=== PATIENT | female | born 1955 | race Caucasian/White ===

== ENCOUNTER 2019-12-20 12:36 | Outpatient (CLI) | payer BC, SELFPAY ==
--- NOTE | ~2019-12-20 | US_ITS ---
EXAMINATION: US venous doppler [facility] DATE: 12/20/2019 13:16 INDICATION: Left calf pain. TECHNIQUE: Grayscale ultrasound images without and with compression and Doppler ultrasound images of the left lower extremity veins were obtained. COMPARISON: Ultrasound 12/03/2013 FINDINGS: The visualized portions of left common femoral vein, profunda (deep) femoral vein, femoral vein, popl iteal vein, peroneal veins, posterior tibial veins, and greater saphenous vein outflow are patent. Zarate bcutaneous edema is noted. IMPRESSION: 1. No deep venous thrombosis. Reviewed, dictated and finalized at location A.
== END 2019-12-20 12:37 | disposition home or self-care (01) ==
PROVIDERS: PCP Nurse Practitioner Adult Health; Visit Provider Nurse Practitioner Family
DX: M79.662 Pain in left lower leg (principal)
CPT/HCPCS: 93971

== ENCOUNTER 2021-02-16 09:55 | Outpatient (CLI) | payer BC, SELFPAY ==
--- NOTE | ~2021-02-16 | US_ITS ---
EXAMINATION: US thyroid DATE: 02/16/2021 10:32 INDICATION: Nontoxic multinodular goiter. TECHNIQUE: Multiple ultrasound images of the thyroid were obtained. COMPARISON: Ultrasound 03/15/2019, 09/03/18, 09/24/18 FINDINGS: The right thyroid lobe measures 4.2 x 3.3 x 2.1 cm. The left thyroid lobe measures 4.7 x 2.2 x 0.9 c m. In the right thyroid lobe, there is a 13 mm solid, hypoechoic, iidhp-yuwm-rtcw nodule with smooth margin without echogenic foci (TI-RADS TR4), stable from 09/03/18. In the right thyroid lobe, there is an 18 mm predominantly solid, isoechoic, pivth-xrpm-svwg nodule with lobulated margin with punctat e echogenic foci (TR5), stable from 09/24/18 when biopsy was benign. In the right thyroid lobe, there is a 2.1 cm solid, isoechoic, rqqvq-qhih-iwcv nodule with ill-defined margin without echogenic foci (TR4), stable from 09/24/18 when biopsy was benign. In the right thyroid lobe, there is a 13 mm solid , hypoechoic, uqtco-wart-sygl nodule with smooth margin without echogenic foci (TR4), stable from . There are smaller nodules in left thyroid lobe. IMPRESSION: 1. Stable multinodular goiter, likely not clinically significant. Reviewed, dictated and finalized at location B.
== END 2021-02-16 09:56 | disposition home or self-care (01) ==
PROVIDERS: PCP Nurse Practitioner Adult Health; Visit Provider Nurse Practitioner Adult Health
DX: E04.2 Nontoxic multinodular goiter (principal)
CPT/HCPCS: 76536

== ENCOUNTER 2022-06-30 10:47 | Outpatient (CLI) | payer OTHER, SELFPAY ==
--- NOTE | ~2022-06-30 | US_ITS ---
EXAMINATION: US thyroid DATE: 06/30/2022 11:45 INDICATION: Nontoxic single thyroid nodule. TECHNIQUE: Multiple ultrasound images of the thyroid were obtained. COMPARISON: Ultrasound 02/16/2021, 09/03/2018 FINDINGS: The right thyroid lobe measures 5.7 x 1.4 x 3.3 cm. The left thyroid lobe measures 4.7 x 0.9 x 2.1 c m. In the right thyroid lobe, there is a 2.0 cm solid, hypoechoic, wider than tall nodule with maryam h margin without echogenic foci (TI-RADS TR4). In the right thyroid lobe, there is a 1.5 cm solid, hy poechoic, wider than tall nodule with smooth margin without echogenic foci (TR4). In the right thyroi d lobe, there is a 2.1 cm solid, hypoechoic, wider than tall nodule with ill-defined margin without e chogenic foci (TR4). In the right thyroid lobe, there is a 1.3 cm predominantly solid, hypoechoic, wi pratima than tall nodule with ill-defined margin without echogenic foci (TR4). In the right thyroid lobe, there is a 1.7 cm solid, hypoechoic, wider than tall nodule with smooth margin without echogenic foc i (TR4). In the left thyroid lobe, there is a 1.1 cm solid, hypoechoic, wider than tall nodule with i ll-defined margin without echogenic foci (TR4). In the left thyroid lobe, there is a 1.0 cm solid, hy poechoic, wider than tall nodule with smooth margin without echogenic foci (TR4). IMPRESSION: 1. Multinodular goiter, stable from 09/03/2018. Two nodules biopsied on 09/24/2018 were benign. Reviewed, dictated and finalized at location A. IMPRESSION: 1. Multinodular goiter, stable from 09/03/2018. Two nodules biopsied on 018 were benign.
== END 2022-06-30 10:48 | disposition home or self-care (01) ==
PROVIDERS: PCP Nurse Practitioner Family; Visit Provider Nurse Practitioner Family
DX: E04.2 Nontoxic multinodular goiter (principal)
CPT/HCPCS: 76536

== ENCOUNTER 2022-09-02 09:34 | Outpatient (CLI) | payer OTHER, SELFPAY ==
--- NOTE | ~2022-09-02 | MM_ITS ---
EXAMINATION: MM screening matilde BI w ree HISTORY: Screening mammogram TECHNIQUE: Craniocaudal and mediolateral oblique 3-D tomosynthesis images were obtained and synthetic 2-D images were generated. CAD analysis was submitted and interpreted. COMPARISON: No prior mammogram is available for comparison at this institution. BREAST PARENCHYMAL COMPOSITION: There are scattered areas of fibroglandular density. FINDINGS: Scattered benign-appearing calcifications are present. No suspicious mass, calcification, o r architectural distortion are identified in either breast to suggest malignancy. IMPRESSION: 1. No mammographic evidence of malignancy. 2. Recommend routine screening mammography in one year. BI-RADS Category 2: Benign finding(s). Reviewed, dictated and finalized at location A. OUT SUPERVISOR
== END 2022-09-02 09:35 | disposition home or self-care (01) ==
PROVIDERS: PCP Nurse Practitioner Family; Visit Provider Nurse Practitioner Family
DX: Z12.31 Encounter for screening mammogram for malignant neoplasm of breast (principal)
CPT/HCPCS: 77063; 77067

== ENCOUNTER 2022-12-13 08:39 | Outpatient (CLI) | payer OTHER, SELFPAY ==
--- NOTE | ~2022-12-13 | XR_ITS ---
EXAMINATION: XR barium swallow modified DATE: 12/13/2022 09:13 INDICATION: Dysphagia. Cough while swallowing solids. TECHNIQUE: The patient was given barium-containing material of multiple consistencies to swallow by t trudy speech pathologist while I performed fluoroscopy. Fluoroscopy exposure time was 1.1 minutes. The n umber of fluoroscopy images saved to the PACS was 3. Dose-area product was 2.856 Gy-cm^2. FINDINGS: The swallow is normal. The esophagus is severely enlarged and gas-filled. IMPRESSION: 1. Severely enlarged and gas-filled esophagus, most likely secondary to achalasia. Endoscopy is recom mended to exclude malignancy. 2. Please refer to the speech therapy report for recommendations. Reviewed, dictated and finalized at location A. P JIG ASSEMBLER IMPRESSION: 1. Severely enlarged and gas-filled esophagus, most likely secondary to achalas ia. Endoscopy is recommended to exclude malignancy. 2. Please refer to the speech therapy report for recommendations.
--- NOTE | 2022-12-13 14:15 | REHSTMBS ---
Assessment and note entered by Nicolle Hassan, UNDERCOAT SPRAYER Modified Barium Swallow Evaluation Feeding Type Recommended Oral Food Consistency Soft and Bite Size, Level Liquid Consistency Thin (0) ST Clinical Summary MODIFIED BARIUM SWALLOW STUDY This patient was seen for a Modified Barium Swallow at the request of her physician. She reports she has a long-standing history of difficulty swallowing however now she feels it is getting worse. She stated that when she eats, her throat becomes congested and she begins to cough and eventually coughs up phlegm. She denies sinus or allergy as a cause for drainage or phlegm in the throat but does report a history of gastroesophageal reflux with medication but she feels the medication has not contributed to improvement. Patient does report a current issue with her thyroid, including thyroid nodules. She indicated she is to undergo an EGD and colonoscopy procedure next week. Today the patient was viewed in the lateral position to the level of C5/C6. When first viewed, patient exhibited an unusual looking pharynx. She was given sips of thin liquid and no evidence of penetration/aspiration was noted however radiologist placed patient in the AP position and had her consume more liquid. Unusual structure, shape and location was observed by this therapist. See Radiology Report for details. Evaluation continued in the lateral position and patient continued to exhibit adequate manipulation, mastication, and swallows for each subsequent amount and consistency. Patient is referred back to her physician for further assessment of her complaints. Thank you for this referral.
== END 2022-12-13 08:40 | disposition home or self-care (01) ==
PROVIDERS: PCP Nurse Practitioner Family; Visit Provider Nurse Practitioner Family
DX: R13.10 Dysphagia, unspecified (principal)
CPT/HCPCS: 92611

== ENCOUNTER 2022-12-22 01:02 | Day surgery (SDC) | payer OTHER, SELFPAY ==
[2022-12-12 14:55] VITALS: BMI 40.5
[2022-12-22 08:50] VITALS: BP 126/73; PULSE 85; RESP 20; TEMP 36.5; O2SAT 97; BMI 39.3
[2022-12-22] MEDS: LACTATED RINGERS 1,000 ML 150 ML IV CONT (09:08)
--- NOTE | 2022-12-22 09:20 | WPDHPUPDATE1 ---
History and Physical Update Update Date/Time: 12/22/22 09:20 History and Physical has been reviewed, including an updated exam of the patient. There are NO changes in the patient's condition. Risks, benefits, and alternatives have been discussed and questions answered. Patient agrees to proceed with procedure.
--- NOTE | 2022-12-22 09:31 | WPDANESEPPF ---
Anes - Initial Pre Proc Eval Procedure: Operation Date: 12/22/22 10:00 Proposed Procedures p Esophagogastroduodenoscopy & Screening Colonoscopy - Fran Pollard MD Date/Time: 12/22/22 09:31 Surgeon: Fran Pollard MD Pre Op Diagnosis: Neoplasm screening, Fam hx colon ca,dysphagia Patient Data Age: 67 Gender: F Height: 1.6 m Weight: 100.8 kg Last Vital Signs Temp 97.7 F 12/22/22 08:50 Pulse 85 12/22/22 08:50 Resp 20 12/22/22 08:50 BP 126/73 12/22/22 08:50 Pulse Ox 97 12/22/22 08:50 O2 Del Method Room Air 12/22/22 08:50 Allergies Allergy/AdvReac Type Severity Reaction Status Date / Time cephalexin AdvReac Mild Rash Verified 12/22/22 08:48 Home Medications Medication Instructions Recorded Confirmed Type calcium carbonate 600 mg-vitamin 1 tablet PO DAILY 11/05/21 12/12/22 History D3 20 mcg (800 unit) tablet pqyuiodnger-pyhrccgzb-bhm C-Mn 500 1 cap PO DAILY 11/05/21 12/12/22 History mg-400 mg capsule pkmlqdvz-lwg-anhkb ac 400 1 tablet PO DAILY 11/05/21 12/12/22 History mcg-calcium carb 500 mg-vit K1 20 mcg tablet (Women's 50 Plus Multivitamin) timolol 0.5 %-dorzolamide 2 1 drp ophthalmic (eye) DAILY 11/05/21 12/12/22 History %-latanprost 0.005 % (PF) eye drops ezetimibe 10 mg-rosuvastatin 20 mg 1 tablet PO DAILY #90 tabs 08/23/22 12/12/22 Rx tablet furosemide 20 mg tablet 20 mg PO QAM #90 tabs 08/23/22 12/12/22 Rx lisinopril 40 mg tablet 40 mg PO DAILY #90 tabs 08/23/22 12/12/22 Rx fluticasone propionate 50 1 spray intranasal BID #16 grams 11/29/22 12/12/22 Rx mcg/actuation nasal spray,suspension (Flonase Allergy Relief) Patient hx anesthesia problems: none Family hx anesthesia problems: none Results Review: All pre-operative results and documents have been reviewed as part of the pre-operative evaluation. PMFSH Past Medical History Medical History (Updated 12/06/22 @ 10:30 by JONES Landeros) Arthritis Bilateral edema of lower extremity BMI 40.0-44.9, adult Breast cancer screening 09/05/22 mammogram negative Dysphagia Encounter to establish care Family history of colon cancer GERD (gastroesophageal reflux disease) Glaucoma History of colon polyps Hoarseness HTN (hypertension) Hyperlipidemia Lump of skin of back Phlegm in throat Thyroid nodule Wellness examination Surgical History Surgical History Obstructed fallopian tubes Family History Family History Mother Carcinoma of colon Cervical cancer Hypertension Social History Social History Smoking status: Never smoker Additional smoking assessment comments: parents smoked Alcohol intake: current Alcohol use details: rare occasions Substance use: never Substance use type: does not use Lack of Transportation: No Lack of Food: Never True Current Housing: I Have Housing Concerned About Future Housing: No Difficulty Paying Gas/Electric Bills: No Difficulty Paying for Meds: No Currently Unemployed: No Education: Bachelor's Degree Difficulty w/ Childcare or Family Care: No Living arrangements: with family Spiritual care concerns: No Anes - Eval Final PreProcedure Day of Procedure 12/22/22 09:31 Patient weight: morbidly obese Heart: regular rate and rhythm Lungs: clear to auscultation Airway: Mallampati scale class III Neurological: alert and oriented Last oral intake: >/= 8 hours ASA classification: III Emergent: no Anesthetic plan: proceed Anesthesia type and monitoring: general GIVS and standard monitoring Results Review: All pre-operative results and documents have been reviewed as part of the pre-operative evaluation. Informed Consent: The patient's anesthetic plan and its attendant risks and benefits were discussed with the patien
--- NOTE | 2022-12-22 10:25 | SUR.OPER ---
EGD end: 1019 COLONOSCOPY START: 102
[2022-12-22 10:39] VITALS: BP 111/58; PULSE 85; RESP 24; O2SAT 100
[2022-12-22 10:49] VITALS: BP 126/70; PULSE 81; RESP 17; O2SAT 100
[2022-12-22 10:59] VITALS: BP 134/57; PULSE 77; RESP 22; O2SAT 100
== END 2022-12-22 11:13 | disposition home or self-care (01) ==
PROVIDERS: PCP Nurse Practitioner Family; Visit Provider Internal Medicine Gastroenterology
PROC: 0DJ08ZZ Inspection of Upper Intestinal Tract, Via Natural or Artificial Opening Endoscopic (ICD-10-PCS; CPT 43235; principal; 2022-12-22 10:00)
DX: Z12.11 Encounter for screening for malignant neoplasm of colon (principal); D12.2 Benign neoplasm of ascending colon; K64.8 Other hemorrhoids; K57.30 Diverticulosis of large intestine without perforation or abscess without bleeding; K29.80 Duodenitis without bleeding; R13.10 Dysphagia, unspecified; Z80.0 Family history of malignant neoplasm of digestive organs; K21.9 Gastro-esophageal reflux disease without esophagitis; H40.9 Unspecified glaucoma; I10 Essential (primary) hypertension; E78.5 Hyperlipidemia, unspecified; E66.01 Morbid (severe) obesity due to excess calories; Z68.39 Body mass index [BMI] 39.0-39.9, adult
CPT/HCPCS: 45385; 43239; 88305; J2704; J7120

== ENCOUNTER 2023-04-26 12:44 | Inpatient (IN) | payer OTHER, SELFPAY ==
[2023-04-26] VITALS (17 sets, daily range): BP systolic 113–152; BP diastolic 34–81; PULSE 74–101; RESP 14–20; TEMP 36.2–36.6; O2SAT 88–100; BMI 33.5
--- NOTE | ~2023-04-26 | US_ITS ---
EXAMINATION: US renal BI DATE: 04/27/2023 14:01 INDICATION: derrell TECHNIQUE: Multiple grayscale and Doppler ultrasound images of the kidneys were obtained. COMPARISON: None. FINDINGS: Evaluation of the kidneys limited by body habitus. The right kidney measures 10.4 x 4.9 x 5.5 cm. The left kidney measures 11.5 x 5.7 x 4.7 cm. The kidneys demonstrate normal parenchymal echogenicity. T here is no hydronephrosis. The bladder is poorly visualized due to incomplete distention. IMPRESSION: Unremarkable renal sonogram findings, noting that this examination was mildly limited as described ab ove. Reviewed, dictated and finalized at location K. IMPRESSION: Unremarkable renal sonogram findings, noting that this examination was mildly l imited as described above.
--- NOTE | 2023-04-26 14:17 | ED.RECABL ---
HPI - Recheck/Abnormal Lab/Rx General Chief Complaint: Recheck/Abnormal Lab/Rx Stated Complaint: very dehydrated and kidney function is very low Time Seen by Provider: 04/26/23 14:03 History of Present Illness HPI narrative: Patient is a 67-year-old female presenting with concerns for dehydration. Patient states that she is scheduled to have achalasia surgery in approximately 12 days at [facility]. She had outpatient blood work today and was informed that she was dehydrated and her kidney function was low so she needed to come in for evaluation. States that she feels generally fatigued and thirsty. States that she has had decreased urinary frequency lately. States that she has had minimal p.o. intake due to her achalasia. States that she is still keeping water down. Denies headache, fevers or chills, chest pain, shortness of breath, cough, abdominal pain, dysuria, diarrhea, leg swelling. Related Data Home Medications Medication Instructions Recorded Confirmed omeprazole 1 cap PO DAILY PRN Indigestion 04/24/23 04/26/23 Allergies Allergy/AdvReac Type Severity Reaction Status Date / Time cephalexin AdvReac Unknown Unknown Verified 04/26/23 12:45 Review of Systems Review of Systems: All systems reviewed & are unremarkable except as noted in HPI and below PMFSH Past Medical History Medical History (Updated 05/04/23 @ 18:10 by Verito Jacobo MD) Achalasia of digestive tract Arthritis Bilateral edema of lower extremity BMI 40.0-44.9, adult Breast cancer screening 09/05/22 mammogram negative Dysphagia Family history of colon cancer GERD (gastroesophageal reflux disease) Glaucoma History of colon polyps Hoarseness HTN (hypertension) Hyperlipidemia Lump of skin of back Phlegm in throat Thyroid nodule Surgical History Surgical History (Updated 04/27/23 @ 00:06 by Sindy Chen NP) H/O colonoscopy with polypectomy H/O post-sterilization tuboplasty obstruction of fallopian tube Family History Family History Mother Carcinoma of colon Cervical cancer Hypertension Sibling Colon polyp Other Hypertension aunt Social History Social History (Updated 04/27/23 @ 00:08 by Sindy Chen NP) Social History: 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 She lives with her and her son. Her is a durable power banking attorney for healthcare. The patient is lifelong nonsmoker. Code status full code Smoking status: Never smoker Additional smoking assessment comments: parents smoked Alcohol intake: never Substance use: never Substance use type: does not use Lack of Transportation: No Lack of Food: Never True Current Housing: I Have Housing Concerned About Future Housing: No Difficulty Paying Gas/Electric Bills: No Difficulty Paying for Meds: No Currently Unemployed: No Education: Bachelor's Degree Difficulty w/ Childcare or Family Care: No Living arrangements: with family Occupation/Education: retired Gender identity (if verbalized by the patient): Female Sexual Orientation (if Verbalized by the Patient): Straight or Heterosexual Spiritual care concerns: No Exam Narrative: GENERAL: Well-appearing, well-nourished, and in no acute distress. HEAD: Normocephalic, atraumatic. EYES: PERRLA and EOMI. ENT: Nares clear, no rhinorrhea or epistaxis. Mucous membranes moist. NECK: Supple. CHEST: Clear to auscultation. No respiratory distress. HEART: Regular rate and rhythm. Normal peripheral pulses. ABDOMEN: Soft, nontender, nondistended EXTREMITIES: Normal range of motion. No edema. SKIN: Warm, dry, no rash. NEURO: No focal deficits. Alert and oriented x3. PSYCH: Normal mood and affect. Course Vital Signs Vital signs: Vital Signs Temperature 97.2 F L 04/26/23 12:48 Pulse Rate 74 04/26/23 12:48 Respiratory Rate 20 04/26/23 12:48 Blood P
[2023-04-26] MEDS: SODIUM CHLORIDE 0.9% IV 1,000 ML 999 ML IV CONT ×2 (14:41→15:51)
[2023-04-26 14:47] LABS: Basophils Percent Auto 0.3 % (0.2-1.2); Eosinophils Absolute Auto 0.2 K/mm3 (0-0.3); Eosinophils Percent Auto 1.4 % (0-4.4); Hematocrit 47.3 % (37.0-47.0); Hemoglobin 15.1 g/dL (12.0-15.0); Immature Granulocyte Absolute 0.03 K/mm3 (0.00-0.031); Immature Granulocyte Percent A 0.3 % (0-0.5); Lymphocytes Percent Auto 12.2 % (18.3-44.2); Mean Corpuscular HGB Conc 31.9 g/dl (32-36); Mean Corpuscular Hemoglobin 28.1 pg (26-34); Mean Corpuscular Volume 88.1 fl (80-100); Mean Platelet Volume 12.3 fl (7.4-10.4); Monocytes Absolute Auto 0.6 K/mm3 (0.1-0.6); Monocytes Percent Auto 5.3 % (2.6-8.5); Neutrophils Absolute Auto 8.6 K/mm3 (1.3-6.7); Neutrophils Percent Auto 80.5 % (45.5-73.1); Platelet Count Result 221 k/mm3 (150-375); Red Blood Count 5.37 M/mm3 (4.2-5.4); Red Cell Distribution Width 13.1 % (11.5-14.5); White Blood Count 10.6 K/mm3 (4.5-10.0)
[2023-04-26 15:00] LABS: Alanine Aminotransferase 19 U/L (6-35); Alkaline Phosphatase 91 U/L (38-126); Anion Gap 15 mmol/L (8-16); Aspartate Amino Transferase 22 U/L (14-36); Bilirubin,Total 0.5 mg/dL (0.2-1.3); Blood Urea Nitrogen > 120 mg/dL (7-17); Calcium 10.3 mg/dL (8.4-10.2); Carbon Dioxide 26 mmol/L (22-30); Chloride 107 mmol/L (98-107); Estimated CRCL calculation 18 ml/min; Estimated Glomerular Filt Rate 16; Glucose 119 mg/dL (65-110); Lipase 431 U/L (23-300); Magnesium 2.4 mg/dL (1.6-2.3); Potassium 3.4 mmol/L (3.4-5.0); Sodium 148 mmol/L (137-145)
[2023-04-26 15:09] LABS: Appearance Urine Cloudy (Clear); Bacteria Urine Rare /hpf; Bilirubin Urine Negative (Negative); Blood Urine 2+ (Negative); Color Urine Yellow (Yellow); Glucose Urine UA Negative (Negative); Hyaline Casts Urine Present /lpf; Ketones Urine Trace mg/dL (Negative); Leukocyte Esterase Ur 1+ LEU/UL (Negative); Nitrate Urine Negative (Negative); Non Pathogenic Casts >20; Protein Urine 1+ mg/dL (Negative); RBC Urine 0-2 /hpf (0-2); Specific Grav Ur 1.018 (1.001-1.035); Squamous Epithelial Cell Urine Moderate /hpf (Few); Urobilinogen Urine 0.2 mg/dL (<2.0)
[2023-04-26 15:11] LABS: Add Urine Microscopic? YES
--- NOTE | 2023-04-26 17:38 | ADMGEN ---
This patient, Magaly Butler, was admitted to Medical Room 349-01. Patient/family oriented to hospital policies and general routines including ID bracelet, bed and alarms, visiting hours, pain management, procedures, bathroom and other care routines, personal items, smoking policy, room service/diet, and visiting hours. Information on how to activate the Rapid Response Team has been discussed. Patient/Family are encouraged to report perceived risks to care and to ask questions if they do not understand what they are told or what they should do.
--- NOTE | 2023-04-26 22:00 | P.HP_ITS ---
ALT 19 (6-35) U/L Alkaline Phosphatase 91 (38-126) U/L Albumin 4.0 (3.5-5.1) g/dL Urine 04/26/23 Range/Units 14:36 Urine Color Yellow (Yellow) Urine Appearance Cloudy H (Clear) Urine pH 5.0 (5.0-9.0) Ur Specific [place] 1.018 (1.001-1.035) Urine Protein 1+ H (Negative) mg/dL Urine Glucose (UA) Negative (Negative) mg/dL Assessment and Plan Assessment and plan (1) ORIANA (acute kidney injury): Code(s): N17.9 - Acute kidney failure, unspecified Status: Acute Assessment and Plan: The patient has had poor oral intake. The patient has a history of achalasia and is approximately 12 days away from surgery. When I assessed the patient she was drinking water without difficulty. Continue with IV fluids as her creatinine is 2.9. Her GFR is 16. Calcium 10.3. Renal ultrasound has been ordered for tomorrow. If patient does not have any improvement or has an abnormal ultrasound may consider consulting Nephrology. (2) Achalasia of digestive tract: Code(s): K22.0 - Achalasia of cardia Status: Acute Assessment and Plan: The patient is 12 days away from surgery of [facility]. (3) Hyperlipidemia: Code(s): E78.5 - Hyperlipidemia, unspecified Status: Acute Assessment and Plan: Continue with current treatment. (4) HTN (hypertension): Code(s): I10 - Essential (primary) hypertension Status: Acute Assessment and Plan: P.r.n. hydralazine Quality VTE Prophylaxis VTE prophylaxis: mechanical ordered H&P: HPI History of Present Illness Date/Time: 04/26/23 22:00 Chief Complaint: Abnormal lab Narrative: This is a 67-year-old female patient who has a history of achalasia and the patient is approximately 10 days away from having surgery at [facility]. The patient had her pre-surgical labs drawn and was told there was some concern for dehydration. The patient had blood work today and was informed that she was dehydrated that her kidney functions were poor and that she needed to come to the emergency room for evaluation. The patient is fatigued and has difficulty swallowing at times. Typically she can keep water down but has had poor oral intake. She has no fever chills. No nausea vomiting or diarrhea. No difficulty urinating. Her white count is 10.6. H&H is 15.1 and 47.3. Her sodium was 148. P when is 120 creatinine is 2.9. GFR 16. Magnesium 2.4. The patient had +leukocyte esterase in her urine and 11-20 wbc's. With moderate amount of squamous epithelia cells. Most likely this is a contaminant. The patient was given 2 L of IV fluids. The patient is drinking water without difficulty at this time. The patient stated she is starting to feel better. Her urine was sent for culture. The patient is being admitted to observation status on the date of service of 04/26/2023 Review of Systems Review of Systems: All systems reviewed & are unremarkable except as noted in HPI and below Constitutional: Constitutional: Reports as per HPI and Reports no additional constitutional complaints Eyes: Eyes: Reports as per HPI and Reports no additional eye complaints ENT: Reports system reviewed and no additional complaints, except as documented and Reports Normal hearing present Cardiovascular: Cardiovascular: Reports no additional cardiovascular complaints Respiratory: Respiratory: Reports no additional respiratory complaints and Repor
--- NOTE | 2023-04-26 22:00 | PM.IMHP ---
H&P: HPI History of Present Illness Date/Time: 04/26/23 22:00 Chief Complaint: Abnormal lab Narrative: This is a 67-year-old female patient who has a history of achalasia and the patient is approximately 10 days away from having surgery at [facility]. The patient had her pre-surgical labs drawn and was told there was some concern for dehydration. The patient had blood work today and was informed that she was dehydrated that her kidney functions were poor and that she needed to come to the emergency room for evaluation. The patient is fatigued and has difficulty swallowing at times. Typically she can keep water down but has had poor oral intake. She has no fever chills. No nausea vomiting or diarrhea. No difficulty urinating. Her white count is 10.6. H&H is 15.1 and 47.3. Her sodium was 148. P when is 120 creatinine is 2.9. GFR 16. Magnesium 2.4. The patient had +leukocyte esterase in her urine and 11-20 wbc's. With moderate amount of squamous epithelia cells. Most likely this is a contaminant. The patient was given 2 L of IV fluids. The patient is drinking water without difficulty at this time. The patient stated she is starting to feel better. Her urine was sent for culture. The patient is being admitted to observation status on the date of service of 04/26/2023 Review of Systems Review of Systems: All systems reviewed & are unremarkable except as noted in HPI and below Constitutional: Constitutional: Reports as per HPI and Reports no additional constitutional complaints Eyes: Eyes: Reports as per HPI and Reports no additional eye complaints ENT: Reports system reviewed and no additional complaints, except as documented and Reports Normal hearing present Cardiovascular: Cardiovascular: Reports no additional cardiovascular complaints Respiratory: Respiratory: Reports no additional respiratory complaints and Reports no additional respiratory complaints Gastrointestinal: Gastrointestinal: Reports as per HPI and Reports no additional gastrointestinal complaints Musculoskeletal: Musculoskeletal: Reports no additional musculoskeletal complaints Integumentary/Breasts: Skin/Breast: Reports system reviewed and no additional complaints, except as docu and Reports as per HPI Neurologic: Reports system reviewed and no additional complaints, except as documented, Reports as per HPI and Reports Normal hearing present Psychiatric: Psychiatric: Reports no additional psychiatric complaints and Reports as per HPI Endocrine: Endocrine: Reports no additional endocrine complaints Hematologic/Lymphatic: Hematologic/Lymphatic: Reports no additional hematologic/lymphatic complaints Allergic/Immunologic: Allergic/Immunologic: Reports no additional allergic/immunologic complaints [facility] Past Medical History Medical History (Updated 04/27/23 @ 00:05 by Sindy Chen NP) Achalasia of digestive tract Arthritis Bilateral edema of lower extremity BMI 40.0-44.9, adult Breast cancer screening 09/05/22 mammogram negative Dysphagia Family history of colon cancer GERD (gastroesophageal reflux disease) Glaucoma History of colon polyps Hoarseness HTN (hypertension) Hyperlipidemia Lump of skin of back Phlegm in throat Thyroid nodule Surgical History Surgical History (Updated 04/27/23 @ 00:06 by Sindy Chen NP) H/O colonoscopy with polypectomy H/O post-sterilization tuboplasty obstruction of fallopian tube Family History Family History Mother Carcinoma of colon Cervical cancer Hypertension Sibling Colon polyp Other Hypertension aunt Social History Social History (Updated 04/27/23 @ 00:08 by Sindy Chen NP) Social History: 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 She lives with her and her son. Her is a durable power attorney lawyer for healthcare. The patient is lifelong nonsmoker. Code
[2023-04-26] MEDS: SODIUM CHLORIDE 0.9% IV 1,000 ML 100 ML IV CONT (22:47)
[2023-04-27 04:39] VITALS: BP 134/61; PULSE 87; RESP 18; TEMP 36.5; O2SAT 100
[2023-04-27 05:54] LABS: Basophils Percent Auto 0.3 % (0.2-1.2); Eosinophils Absolute Auto 0.2 K/mm3 (0-0.3); Eosinophils Percent Auto 3.2 % (0-4.4); Hematocrit 40.7 % (37.0-47.0); Hemoglobin 12.8 g/dL (12.0-15.0); Immature Granulocyte Absolute 0.02 K/mm3 (0.00-0.031); Immature Granulocyte Percent A 0.3 % (0-0.5); Lymphocytes Absolute Auto 1.21 K/mm3 (0.9-3.2); Lymphocytes Percent Auto 15.9 % (18.3-44.2); Mean Corpuscular HGB Conc 31.4 g/dl (32-36); Mean Corpuscular Hemoglobin 27.6 pg (26-34); Mean Corpuscular Volume 87.7 fl (80-100); Mean Platelet Volume 12.2 fl (7.4-10.4); Monocytes Absolute Auto 0.6 K/mm3 (0.1-0.6); Monocytes Percent Auto 7.9 % (2.6-8.5); Neutrophils Absolute Auto 5.5 K/mm3 (1.3-6.7); Neutrophils Percent Auto 72.4 % (45.5-73.1); Platelet Count Result 195 k/mm3 (150-375); Red Blood Count 4.64 M/mm3 (4.2-5.4); Red Cell Distribution Width 13.2 % (11.5-14.5); White Blood Count 7.6 K/mm3 (4.5-10.0)
[2023-04-27 06:03] LABS: Lactic Acid Reflex 0.8 mmol/L (0.7-2.0)
[2023-04-27 06:24] LABS: Alanine Aminotransferase 17 U/L (6-35); Albumin Level 3.2 g/dL (3.5-5.1); Alkaline Phosphatase 86 U/L (38-126); Anion Gap 11 mmol/L (8-16); Aspartate Amino Transferase 16 U/L (14-36); Bilirubin,Total 0.3 mg/dL (0.2-1.3); Blood Urea Nitrogen 108 mg/dL (7-17); Calcium 9.4 mg/dL (8.4-10.2); Carbon Dioxide 21 mmol/L (22-30); Chloride 119 mmol/L (98-107); Estimated CRCL calculation 29 ml/min; Estimated Glomerular Filt Rate 28; Glucose 111 mg/dL (65-110); Potassium 2.8 mmol/L (3.4-5.0); Sodium 151 mmol/L (137-145)
[2023-04-27] MEDS: KCL 20 MEQ/SW 100 ML 100 ML 50 MEQ IVPB (08:08)
[2023-04-27] MEDS: PANTOPRAZOLE SODIUM IV 40 MG VIAL IV PUSH ×2 (08:08→20:06)
[2023-04-27 11:10] VITALS: BMI 33.5
[2023-04-27] MEDS: SODIUM CHLORIDE 0.9% IV 1,000 ML 100 ML IV CONT (12:13)
[2023-04-27 14:00] VITALS: BP 114/63; PULSE 93; RESP 18; TEMP 36.6; O2SAT 100
[2023-04-27 15:50] LABS: Anion Gap 10 mmol/L (8-16); Blood Urea Nitrogen 88 mg/dL (7-17); Calcium 9.6 mg/dL (8.4-10.2); Carbon Dioxide 23 mmol/L (22-30); Chloride 119 mmol/L (98-107); Estimated CRCL calculation 34 ml/min; Estimated Glomerular Filt Rate 35; Glucose 117 mg/dL (65-110); Magnesium 2.1 mg/dL (1.6-2.3); Sodium 152 mmol/L (137-145)
--- NOTE | 2023-04-27 16:47 | WPDPN ---
Progress Note: A&P Assessment and Plan (1) ORIANA (acute kidney injury): Code(s): N17.9 - Acute kidney failure, unspecified Status: Acute Assessment and Plan: The patient has had poor oral intake. The patient has a history of achalasia and is approximately 12 days away from surgery. When I assessed the patient she was drinking water without difficulty. Continue with IV fluids as her creatinine is 2.9. Her GFR is 16. Calcium 10.3. Renal ultrasound has been ordered for tomorrow. If patient does not have any improvement or has an abnormal ultrasound may consider consulting Nephrology. 04/27/2023 interval history: Patient presented with elevated BUN and creatinine as patient has achalasia, and difficulty with p.o. intake upon arrival patient BUN >120 and Scr 2.9 patient being hydrated and today her BUN is 108 and Scr is 1.8, will continue to hydrate the patient with IV fluid and oral intake will continue monitor and further recommendation to follow. (2) Achalasia of digestive tract: Code(s): K22.0 - Achalasia of cardia Status: Acute Assessment and Plan: The patient is 12 days away from surgery of [facility]. (3) Hyperlipidemia: Code(s): E78.5 - Hyperlipidemia, unspecified Status: Acute Assessment and Plan: Continue with current treatment. (4) HTN (hypertension): Code(s): I10 - Essential (primary) hypertension Status: Acute Assessment and Plan: P.r.n. hydralazine Subjective Date/time seen: 04/27/23 16:47 Interval history: Abnormal lab HPI-Narrative: This is a 67-year-old female patient who has a history of achalasia and the patient is approximately 10 days away from having surgery at [facility].? The patient had her pre-surgical labs drawn and was told there was some concern for dehydration.? The patient had blood work today and was informed that she was dehydrated that her kidney functions were poor and that she needed to come to the emergency room for evaluation.? The patient is fatigued and has difficulty swallowing at times.? Typically she can keep water down but has had poor oral intake.? She has no fever chills.? No nausea vomiting or diarrhea.? No difficulty urinating.? Her white count is 10.6.? H&H is 15.1 and 47.3.? Her sodium was 148.? P when is 120 creatinine is 2.9.? GFR 16.? Magnesium 2.4.? The patient had +leukocyte esterase in her urine and 11-20 wbc's.? With moderate amount of squamous epithelia cells.? Most likely this is a contaminant.? The patient was given 2 L of IV fluids.? The patient is drinking water without difficulty at this time.? The patient stated she is starting to feel better.? Her urine was sent for culture. 04/27/2023 interval history: Patient presented with elevated BUN and creatinine as patient has achalasia, and difficulty with p.o. intake upon arrival patient BUN >120 and Scr 2.9 patient being hydrated and today her BUN is 108 and Scr is 1.8, will continue to hydrate the patient with IV fluid and oral intake will continue monitor and further recommendation to follow. Review of Systems Review of Systems: All systems reviewed & are unremarkable except as noted in HPI and below Exam Narrative: Morbidly obese Patient is comfortable, NAD HEENT: eyes are clear and none icteric LUNGS: Normal respiratory effort ABD: Distended Lower extremities: no edema SKIN: nonjaundiced Neuro: grossly intact. Objective Data Vital Signs Vital Signs: Vital Signs - 24 hr 04/26/23 17:42 04/26/23 17:59 04/26/23 19:44 Temperature 97.4 F L 97.9 F Pulse Rate 88 101 H Respiratory Rate 14 20 Blood Pressure 150/81 H 137/67 Pulse Oximetry 88 L 100 Oxygen Delivery Room Air 04/26/23 20:00 04/27/23 04:39 04/27/23 08:00 Temperature 97.7 F Pulse Rate 101 H 87 Respiratory Rate 20 18 Blood Pressure 134/61 Pulse Oximetry 100 100 Oxygen Delivery Room Air Room Air 04/27/23 14:00 Temperature 97.9 F Pulse Rate 9
[2023-04-27 20:00] VITALS: PULSE 91; RESP 16; O2SAT 96
[2023-04-27 20:11] VITALS: BP 135/65; PULSE 91; RESP 16; TEMP 36.5; O2SAT 96
[2023-04-28] MEDS: SODIUM CHLORIDE 0.9% IV 1,000 ML 100 ML IV CONT ×2 (00:03→08:36)
[2023-04-28 07:21] LABS: Hematocrit 40.3 % (37.0-47.0); Hemoglobin 12.5 g/dL (12.0-15.0); Mean Corpuscular Hemoglobin 27.8 pg (26-34); Mean Corpuscular Volume 89.8 fl (80-100); Platelet Count Result 180 k/mm3 (150-375); Red Blood Count 4.49 M/mm3 (4.2-5.4); Red Cell Distribution Width 13.4 % (11.5-14.5); White Blood Count 7.6 K/mm3 (4.5-10.0)
[2023-04-28 07:25] LABS: Anion Gap 11 mmol/L (8-16); Blood Urea Nitrogen 63 mg/dL (7-17); Calcium 9.4 mg/dL (8.4-10.2); Carbon Dioxide 22 mmol/L (22-30); Chloride 124 mmol/L (98-107); Estimated CRCL calculation 42 ml/min; Estimated Glomerular Filt Rate 45; Glucose 91 mg/dL (65-110); Sodium 157 mmol/L (137-145)
[2023-04-28] MEDS: PANTOPRAZOLE SODIUM IV 40 MG VIAL IV PUSH ×2 (08:36→20:12)
--- NOTE | 2023-04-28 11:15 | PCNFU ---
Nutrition Follow-Up Complete: Moderate Malnutrition related to inadequate oral intake in the setting of acute disease as evidenced by < 75% of EER for > 7 days and significant weight loss of 20%(50 ibs) in the past 3 months. goal: Adequate Intake of at least 75% of meals/supplements Patient is not progressing towards goal. we will continue current goal. Pt current nutrition is Full liquids with ensure compact BId. Nutrition recommendation: Clinimix E at 40 ml/hr with 250 ml of 20% Lipid Emulsion. Last recorded weight is 86 kg. Bowel Motility: +Bm reported 04/26 Labs Reviewed:Cr 1.2,GFR 45, BUN 63, K 3.0,Na 157 Meds Noted:Protonix Skin: WNL Additional Notes: Patient remains on full liquids with diet supplements. Minimal intake reported. She is tolerating hot tea and hot cereal. Unable to keep any other foods down. Discussions with hospitalist regarding po intake and weight loss of 50 ibs in the past 3 months. Recommending: PICC placement and Clinimix E at 40 ml/hr with 250 ml of 20% Lipid Emulsion. TPN providing additional 1182 kcals/48 gms protein. Agree with diet orders. RD will monitor weight, labs, skin, oral intake, TPN every Monday and Monday.
[2023-04-28 11:51] LABS: Glucose Point of Care 89 mg/dl (65-105)
[2023-04-28] MEDS: LIDOCAINE HCL 1% PF INJ 5 ML VIAL INFILTRATE (12:00)
[2023-04-28 12:39] LABS: Transferrin 111 mg/dL (206-381)
[2023-04-28] MEDS: FAT EMULSIONS IV 20% 250 ML 20.83 ML IVPB (13:44)
[2023-04-28] MEDS: AMINO ACIDS 5%/D15W/E-LYTES/CA 2,000 ML with MULTIVITAMINS-12 INJ VIAL 1 2.5 ML, MULTIV... 40 ML IV CONT (13:44)
[2023-04-28 13:45] LABS: Partial Thromboplastin Time 26.1 SECONDS (22.3-36.8)
[2023-04-28] MEDS: KCL 20 MEQ/SW 100 ML 100 ML 50 MEQ IVPB (13:53)
[2023-04-28] MEDS: DEXTROSE 5%/0.45% SOD CHL 1,000 ML 75 ML IV CONT (13:53)
[2023-04-28] MEDS: CENTRAL LINE FLUSH 10 ML IV PUSH ×2 (13:57→20:12)
[2023-04-28 14:00] VITALS: BP 135/58; PULSE 95; RESP 16; TEMP 36; O2SAT 94
--- NOTE | 2023-04-28 16:21 | WPDPN ---
Progress Note: A&P Assessment and Plan (1) ORIANA (acute kidney injury): Code(s): N17.9 - Acute kidney failure, unspecified Status: Acute Assessment and Plan: The patient has had poor oral intake. The patient has a history of achalasia and is approximately 12 days away from surgery. When I assessed the patient she was drinking water without difficulty. Continue with IV fluids as her creatinine is 2.9. Her GFR is 16. Calcium 10.3. Renal ultrasound has been ordered for tomorrow. If patient does not have any improvement or has an abnormal ultrasound may consider consulting Nephrology. 04/28/2023 interval history: Patient presented with elevated BUN and creatinine as patient has achalasia, and difficulty with p.o. intake upon arrival patient BUN >120 and Scr 2.9 patient being hydrated and today her BUN is 63 and Scr is 1.2, however her sodium is trending up to 157 and discuss with diatician, patient is unable to PO and has vomiting, recommended parenteral nutrition, will start patient on TPN will continue to hydrate the patient and oral intake will continue monitor and further recommendation to follow. (2) Achalasia of digestive tract: Code(s): K22.0 - Achalasia of cardia Status: Acute Assessment and Plan: The patient is 12 days away from surgery of [facility]. (3) Hyperlipidemia: Code(s): E78.5 - Hyperlipidemia, unspecified Status: Acute Assessment and Plan: Continue with current treatment. (4) HTN (hypertension): Code(s): I10 - Essential (primary) hypertension Status: Acute Assessment and Plan: P.r.n. hydralazine Subjective Date/time seen: 04/28/23 16:21 Interval history: Abnormal lab HPI-Narrative: This is a 67-year-old female patient who has a history of achalasia and the patient is approximately 10 days away from having surgery at [facility].? The patient had her pre-surgical labs drawn and was told there was some concern for dehydration.? The patient had blood work today and was informed that she was dehydrated that her kidney functions were poor and that she needed to come to the emergency room for evaluation.? The patient is fatigued and has difficulty swallowing at times.? Typically she can keep water down but has had poor oral intake.? She has no fever chills.? No nausea vomiting or diarrhea.? No difficulty urinating.? Her white count is 10.6.? H&H is 15.1 and 47.3.? Her sodium was 148.? P when is 120 creatinine is 2.9.? GFR 16.? Magnesium 2.4.? The patient had +leukocyte esterase in her urine and 11-20 wbc's.? With moderate amount of squamous epithelia cells.? Most likely this is a contaminant.? The patient was given 2 L of IV fluids.? The patient is drinking water without difficulty at this time.? The patient stated she is starting to feel better.? Her urine was sent for culture. 04/28/2023 interval history: Patient presented with elevated BUN and creatinine as patient has achalasia, and difficulty with p.o. intake upon arrival patient BUN >120 and Scr 2.9 patient being hydrated and today her BUN is 63 and Scr is 1.2, however her sodium is trending up to 157 and discuss with diatician, patient is unable to PO and has vomiting, recommended parenteral nutrition, will start patient on TPN will continue to hydrate the patient and oral intake will continue monitor and further recommendation to follow. Review of Systems Review of Systems: All systems reviewed & are unremarkable except as noted in HPI and below Exam Narrative: Morbidly obese Patient is comfortable, NAD HEENT: eyes are clear and none icteric LUNGS: Normal respiratory effort ABD: Distended Lower extremities: no edema SKIN: nonjaundiced Neuro: grossly intact. Objective Data Vital Signs Vital Signs: Vital Signs - 24 hr 04/27/23 20:11 04/27/23 20:00 04/28/23 08:00 Temperature 97.7 F Pulse Rate 91 91 Respiratory Rate 16 16 Blood Pressure 135/65 Pulse Oximetry 9
[2023-04-28 17:09] LABS: Glucose Point of Care 152 mg/dl (65-105)
[2023-04-28 20:00] VITALS: PULSE 95; RESP 16; O2SAT 94
[2023-04-28 20:51] VITALS: BP 142/50; PULSE 74; RESP 22; TEMP 36.6; O2SAT 100
[2023-04-29 00:06] LABS: Glucose Point of Care 155 mg/dl (65-105)
[2023-04-29] MEDS: DEXTROSE 5%/0.45% SOD CHL 1,000 ML 75 ML IV CONT (02:36)
[2023-04-29 05:34] LABS: Glucose Point of Care 153 mg/dl (65-105)
[2023-04-29] MEDS: CENTRAL LINE FLUSH 10 ML IV PUSH ×3 (05:44→20:56)
[2023-04-29 05:58] LABS: Hematocrit 36.2 % (37.0-47.0); Hemoglobin 11.5 g/dL (12.0-15.0); Mean Corpuscular HGB Conc 31.8 g/dl (32-36); Mean Corpuscular Hemoglobin 28.3 pg (26-34); Mean Corpuscular Volume 89.2 fl (80-100); Mean Platelet Volume 11.1 fl (7.4-10.4); Platelet Count Result 152 k/mm3 (150-375); Red Blood Count 4.06 M/mm3 (4.2-5.4); Red Cell Distribution Width 13.5 % (11.5-14.5); White Blood Count 8.2 K/mm3 (4.5-10.0)
[2023-04-29 06:00] VITALS: BP 98/58; PULSE 66; RESP 20; TEMP 36.8; O2SAT 97
[2023-04-29 06:08] LABS: Anion Gap 4 mmol/L (8-16); Blood Urea Nitrogen 39 mg/dL (7-17); Calcium 9.1 mg/dL (8.4-10.2); Carbon Dioxide 27 mmol/L (22-30); Chloride 123 mmol/L (98-107); Estimated CRCL calculation 50 ml/min; Estimated Glomerular Filt Rate 55; Glucose 159 mg/dL (65-110); Magnesium 1.9 mg/dL (1.6-2.3); Phosphorus 1.7 mg/dL (2.5-4.5); Potassium 3.3 mmol/L (3.4-5.0); Sodium 154 mmol/L (137-145)
[2023-04-29 09:45] VITALS: PULSE 82; RESP 18; O2SAT 100
[2023-04-29] MEDS: PANTOPRAZOLE SODIUM IV 40 MG VIAL IV PUSH ×2 (09:45→20:55)
[2023-04-29] MEDS: POTASSIUM/PHOSPHORUS/SODIUM 1.5 GM PACKET 2 PACKET PO (09:46)
[2023-04-29 11:52] VITALS: O2SAT 96
[2023-04-29 12:03] LABS: Glucose Point of Care 132 mg/dl (65-105)
[2023-04-29] MEDS: FAT EMULSIONS IV 20% 250 ML 20.83 ML IVPB (12:45)
[2023-04-29] MEDS: AMINO ACIDS 5%/D15W/E-LYTES/CA 2,000 ML with MULTIVITAMINS-12 INJ VIAL 1 2.5 ML, MULTIV... 40 ML IV CONT (12:46)
[2023-04-29 14:00] VITALS: BP 122/80; PULSE 82; RESP 18; TEMP 36.2; O2SAT 100
[2023-04-29] MEDS: KCL 20 MEQ/D5/0.45% SOD CHL 1,000 ML 100 ML IV CONT (14:21)
[2023-04-29 15:25] LABS: Triglycerides 1379 mg/dL (<150)
--- NOTE | 2023-04-29 16:32 | WPDPN ---
Progress Note: A&P Assessment and Plan (1) ORIANA (acute kidney injury): Code(s): N17.9 - Acute kidney failure, unspecified Status: Acute Assessment and Plan: The patient has had poor oral intake. The patient has a history of achalasia and is approximately 12 days away from surgery. When I assessed the patient she was drinking water without difficulty. Continue with IV fluids as her creatinine is 2.9. Her GFR is 16. Calcium 10.3. Renal ultrasound has been ordered for tomorrow. If patient does not have any improvement or has an abnormal ultrasound may consider consulting Nephrology. 04/29/2023 interval history: Patient presented with elevated BUN and creatinine as patient has achalasia, and difficulty with p.o. intake upon arrival patient BUN >120 and Scr 2.9 patient being hydrated and today her BUN is 63 and Scr is 1.2, however her sodium is trending up to 157 and discuss with diatician, patient is unable to take PO and as has vomiting, recommended parenteral nutrition, on 04/28 started patient on TPN, patient stats today feels little more energetic, and feels better, will continue to hydrate the patient and oral intake will continue monitor and further recommendation to follow. (2) Achalasia of digestive tract: Code(s): K22.0 - Achalasia of cardia Status: Acute Assessment and Plan: The patient is 12 days away from surgery of [facility]. (3) Hyperlipidemia: Code(s): E78.5 - Hyperlipidemia, unspecified Status: Acute Assessment and Plan: Continue with current treatment. (4) HTN (hypertension): Code(s): I10 - Essential (primary) hypertension Status: Acute Assessment and Plan: P.r.n. hydralazine Subjective Date/time seen: 04/29/23 16:32 Interval history: Abnormal lab HPI-Narrative: This is a 67-year-old female patient who has a history of achalasia and the patient is approximately 10 days away from having surgery at [facility].? The patient had her pre-surgical labs drawn and was told there was some concern for dehydration.? The patient had blood work today and was informed that she was dehydrated that her kidney functions were poor and that she needed to come to the emergency room for evaluation.? The patient is fatigued and has difficulty swallowing at times.? Typically she can keep water down but has had poor oral intake.? She has no fever chills.? No nausea vomiting or diarrhea.? No difficulty urinating.? Her white count is 10.6.? H&H is 15.1 and 47.3.? Her sodium was 148.? P when is 120 creatinine is 2.9.? GFR 16.? Magnesium 2.4.? The patient had +leukocyte esterase in her urine and 11-20 wbc's.? With moderate amount of squamous epithelia cells.? Most likely this is a contaminant.? The patient was given 2 L of IV fluids.? The patient is drinking water without difficulty at this time.? The patient stated she is starting to feel better.? Her urine was sent for culture. 04/29/2023 interval history: Patient presented with elevated BUN and creatinine as patient has achalasia, and difficulty with p.o. intake upon arrival patient BUN >120 and Scr 2.9 patient being hydrated and today her BUN is 63 and Scr is 1.2, however her sodium is trending up to 157 and discuss with diatician, patient is unable to take PO and as has vomiting, recommended parenteral nutrition, on 04/28 started patient on TPN, patient stats today feels little more energetic, and feels better, will continue to hydrate the patient and oral intake will continue monitor and further recommendation to follow. Review of Systems Review of Systems: All systems reviewed & are unremarkable except as noted in HPI and below Exam Narrative: Morbidly obese Patient is comfortable, NAD HEENT: eyes are clear and none icteric LUNGS: Normal respiratory effort ABD: Distended Lower extremities: no edema SKIN: nonjaundiced Neuro: grossly intact. Objective Data Vital Signs Vital Signs: Vital Signs - 24 h
[2023-04-29 18:54] LABS: Glucose Point of Care 121 mg/dl (65-105)
[2023-04-29 20:00] VITALS: PULSE 82; RESP 18; O2SAT 100
[2023-04-29 22:00] VITALS: BP 116/70; PULSE 78; RESP 18; TEMP 35.9; O2SAT 98
[2023-04-30 00:14] LABS: Glucose Point of Care 159 mg/dl (65-105)
[2023-04-30] MEDS: KCL 20 MEQ/D5/0.45% SOD CHL 1,000 ML 100 ML IV CONT (00:15)
[2023-04-30 06:00] VITALS: BP 117/59; PULSE 76; RESP 18; TEMP 36.1; O2SAT 99
[2023-04-30] MEDS: CENTRAL LINE FLUSH 10 ML IV PUSH ×2 (06:08→12:18)
[2023-04-30 06:22] LABS: Hematocrit 35.5 % (37.0-47.0); Hemoglobin 11.1 g/dL (12.0-15.0); Mean Corpuscular HGB Conc 31.3 g/dl (32-36); Mean Corpuscular Hemoglobin 27.8 pg (26-34); Mean Platelet Volume 11.4 fl (7.4-10.4); Platelet Count Result 127 k/mm3 (150-375); Red Blood Count 3.99 M/mm3 (4.2-5.4); Red Cell Distribution Width 13.5 % (11.5-14.5); White Blood Count 9.2 K/mm3 (4.5-10.0)
[2023-04-30 06:35] LABS: Anion Gap 7 mmol/L (8-16); Blood Urea Nitrogen 28 mg/dL (7-17); Calcium 8.8 mg/dL (8.4-10.2); Carbon Dioxide 24 mmol/L (22-30); Chloride 121 mmol/L (98-107); Estimated CRCL calculation 50 ml/min; Estimated Glomerular Filt Rate 55; Glucose 138 mg/dL (65-110); Magnesium 1.7 mg/dL (1.6-2.3); Phosphorus 1.6 mg/dL (2.5-4.5); Potassium 3.4 mmol/L (3.4-5.0); Sodium 152 mmol/L (137-145)
[2023-04-30 06:40] LABS: Glucose Point of Care 144 mg/dl (65-105)
[2023-04-30 09:00] VITALS: PULSE 73; RESP 16; O2SAT 100
[2023-04-30] MEDS: PANTOPRAZOLE SODIUM IV 40 MG VIAL IV PUSH ×2 (09:03→21:08)
[2023-04-30] MEDS: KCL 40 MEQ/D5 1/2NS 1,000 ML 100 ML IV CONT ×2 (11:57→21:07)
[2023-04-30 12:09] LABS: Glucose Point of Care 108 mg/dl (65-105)
[2023-04-30] MEDS: AMINO ACIDS 5%/D15W/E-LYTES/CA 2,000 ML with MULTIVITAMINS-12 INJ VIAL 1 2.5 ML, MULTIV... 40 ML IV CONT (12:14)
[2023-04-30] MEDS: FAT EMULSIONS IV 20% 250 ML 20.83 ML IVPB (12:17)
--- NOTE | 2023-04-30 12:24 | WPDPN ---
Progress Note: A&P Assessment and Plan (1) ORIANA (acute kidney injury): Code(s): N17.9 - Acute kidney failure, unspecified Status: Acute Assessment and Plan: The patient has had poor oral intake. The patient has a history of achalasia and is approximately 12 days away from surgery. When I assessed the patient she was drinking water without difficulty. Continue with IV fluids as her creatinine is 2.9. Her GFR is 16. Calcium 10.3. Renal ultrasound has been ordered for tomorrow. If patient does not have any improvement or has an abnormal ultrasound may consider consulting Nephrology. 04/30/2023 interval history: Patient presented with elevated BUN and creatinine as patient has achalasia, and difficulty with p.o. intake upon arrival patient BUN >120 and Scr 2.9 patient being hydrated and today her BUN is 20 and Scr is 1.0, however her sodium was trending up to 157 today it is trending down to 152 and discuss with diatician, patient is unable to take PO and as has vomiting, recommended parenteral nutrition, on 04/28 started patient on TPN, patient stats today feels little more energetic, and feels better, will continue to hydrate the patient and oral intake will continue monitor and further recommendation to follow. (2) Achalasia of digestive tract: Code(s): K22.0 - Achalasia of cardia Status: Acute Assessment and Plan: The patient is 12 days away from surgery of [facility]. (3) Hyperlipidemia: Code(s): E78.5 - Hyperlipidemia, unspecified Status: Acute Assessment and Plan: Continue with current treatment. (4) HTN (hypertension): Code(s): I10 - Essential (primary) hypertension Status: Acute Assessment and Plan: P.r.n. hydralazine Subjective Date/time seen: 04/30/23 12:24 Interval history: Abnormal lab HPI-Narrative: This is a 67-year-old female patient who has a history of achalasia and the patient is approximately 10 days away from having surgery at [facility].? The patient had her pre-surgical labs drawn and was told there was some concern for dehydration.? The patient had blood work today and was informed that she was dehydrated that her kidney functions were poor and that she needed to come to the emergency room for evaluation.? The patient is fatigued and has difficulty swallowing at times.? Typically she can keep water down but has had poor oral intake.? She has no fever chills.? No nausea vomiting or diarrhea.? No difficulty urinating.? Her white count is 10.6.? H&H is 15.1 and 47.3.? Her sodium was 148.? P when is 120 creatinine is 2.9.? GFR 16.? Magnesium 2.4.? The patient had +leukocyte esterase in her urine and 11-20 wbc's.? With moderate amount of squamous epithelia cells.? Most likely this is a contaminant.? The patient was given 2 L of IV fluids.? The patient is drinking water without difficulty at this time.? The patient stated she is starting to feel better.? Her urine was sent for culture. 04/30/2023 interval history: Patient presented with elevated BUN and creatinine as patient has achalasia, and difficulty with p.o. intake upon arrival patient BUN >120 and Scr 2.9 patient being hydrated and today her BUN is 20 and Scr is 1.0, however her sodium was trending up to 157 today it is trending down to 152 and discuss with diatician, patient is unable to take PO and as has vomiting, recommended parenteral nutrition, on 04/28 started patient on TPN, patient stats today feels little more energetic, and feels better, will continue to hydrate the patient and oral intake will continue monitor and further recommendation to follow. Review of Systems Review of Systems: All systems reviewed & are unremarkable except as noted in HPI and below Exam Narrative: Morbidly obese Patient is comfortable, NAD HEENT: eyes are clear and none icteric LUNGS: Normal respiratory effort ABD: Distended Lower extremities: no edema SKIN: nonjaundiced Neuro: grossly intact.
[2023-04-30 14:00] VITALS: BP 119/73; PULSE 73; RESP 16; TEMP 37.2; O2SAT 100
[2023-04-30] MEDS: ONDANSETRON INJ 4 MG/2 ML VIAL IV PUSH (18:03)
[2023-04-30 18:13] LABS: Glucose Point of Care 126 mg/dl (65-105)
[2023-04-30 19:43] VITALS: BP 120/80; PULSE 75; RESP 20; TEMP 37.2; O2SAT 100
[2023-04-30 23:48] LABS: Glucose Point of Care 138 mg/dl (65-105)
[2023-05-01 04:35] LABS: Basophils Percent Auto 0.2 % (0.2-1.2); Eosinophils Absolute Auto 0.4 K/mm3 (0-0.3); Eosinophils Percent Auto 5.3 % (0-4.4); Hematocrit 35.1 % (37.0-47.0); Immature Granulocyte Absolute 0.05 K/mm3 (0.00-0.031); Immature Granulocyte Percent A 0.6 % (0-0.5); Lymphocytes Absolute Auto 2.05 K/mm3 (0.9-3.2); Lymphocytes Percent Auto 24.9 % (18.3-44.2); Mean Corpuscular HGB Conc 31.3 g/dl (32-36); Mean Corpuscular Hemoglobin 28.1 pg (26-34); Mean Corpuscular Volume 89.5 fl (80-100); Mean Platelet Volume 11.4 fl (7.4-10.4); Monocytes Absolute Auto 0.6 K/mm3 (0.1-0.6); Monocytes Percent Auto 6.8 % (2.6-8.5); Neutrophils Absolute Auto 5.1 K/mm3 (1.3-6.7); Neutrophils Percent Auto 62.2 % (45.5-73.1); Platelet Count Result 111 k/mm3 (150-375); Red Blood Count 3.92 M/mm3 (4.2-5.4); Red Cell Distribution Width 13.7 % (11.5-14.5); White Blood Count 8.2 K/mm3 (4.5-10.0)
[2023-05-01 04:46] LABS: Partial Thromboplastin Time 28.6 SECONDS (22.3-36.8)
[2023-05-01 04:51] LABS: Alanine Aminotransferase 24 U/L (6-35); Albumin Level 2.4 g/dL (3.5-5.1); Alkaline Phosphatase 61 U/L (38-126); Anion Gap 5 mmol/L (8-16); Aspartate Amino Transferase 22 U/L (14-36); Bilirubin,Total 0.2 mg/dL (0.2-1.3); Blood Urea Nitrogen 22 mg/dL (7-17); Calcium 8.5 mg/dL (8.4-10.2); Carbon Dioxide 23 mmol/L (22-30); Chloride 121 mmol/L (98-107); Estimated CRCL calculation 55 ml/min; Estimated Glomerular Filt Rate > 60; Glucose 133 mg/dL (65-110); Magnesium 1.6 mg/dL (1.6-2.3); Phosphorus 1.8 mg/dL (2.5-4.5); Sodium 149 mmol/L (137-145); Triglycerides 169 mg/dL (<150)
[2023-05-01 05:25] LABS: Transferrin 100 mg/dL (206-381)
[2023-05-01 05:42] VITALS: BP 129/83; PULSE 66; RESP 20; TEMP 37.1; O2SAT 100
[2023-05-01 05:47] LABS: Glucose Point of Care 130 mg/dl (65-105)
[2023-05-01] MEDS: KCL 40 MEQ/D5 1/2NS 1,000 ML 100 ML IV CONT ×2 (07:30→18:27)
[2023-05-01 07:53] VITALS: O2SAT 97
[2023-05-01 08:00] VITALS: PULSE 75; RESP 14; O2SAT 98
[2023-05-01] MEDS: PANTOPRAZOLE SODIUM IV 40 MG VIAL IV PUSH ×2 (10:44→20:25)
[2023-05-01 12:13] LABS: Glucose Point of Care 127 mg/dl (65-105)
[2023-05-01] MEDS: AMINO ACIDS 5%/D15W/E-LYTES/CA 2,000 ML with MULTIVITAMINS-12 INJ VIAL 1 2.5 ML, MULTIV... 40 ML IV CONT (13:15)
[2023-05-01] MEDS: FAT EMULSIONS IV 20% 250 ML 20.83 ML IVPB (13:16)
[2023-05-01 14:00] VITALS: BP 118/61; PULSE 75; RESP 14; TEMP 36.7; O2SAT 98
--- NOTE | 2023-05-01 16:49 | WPDPN ---
Progress Note: A&P Assessment and Plan (1) ORIANA (acute kidney injury): Code(s): N17.9 - Acute kidney failure, unspecified Status: Acute Assessment and Plan: The patient has had poor oral intake. The patient has a history of achalasia and is approximately 12 days away from surgery. When I assessed the patient she was drinking water without difficulty. Continue with IV fluids as her creatinine is 2.9. Her GFR is 16. Calcium 10.3. Renal ultrasound has been ordered for tomorrow. If patient does not have any improvement or has an abnormal ultrasound may consider consulting Nephrology. 05/01/2023 interval history: Patient presented with elevated BUN and creatinine as patient has achalasia, and difficulty with p.o. intake upon arrival patient BUN >120 and Scr 2.9 patient being hydrated and today her BUN is 20 and Scr is 1.0, however her sodium was trending up to 157 today it is trending down to 152 and discuss with diatician, patient is unable to take PO and as has vomiting, recommended parenteral nutrition, on 04/28 started patient on TPN, patient stats today feels little more energetic, and feels better, patient enterocolitis improving including sodium, unable to discharge patient home on TPN I called patient's surgeon Dr Pimentel at [facility] and patient is accepted for transfer awaiting for a bed will continue to hydrate the patient and oral intake will continue monitor and further recommendation to follow. (2) Achalasia of digestive tract: Code(s): K22.0 - Achalasia of cardia Status: Acute Assessment and Plan: The patient is 12 days away from surgery of [facility]. (3) Hyperlipidemia: Code(s): E78.5 - Hyperlipidemia, unspecified Status: Acute Assessment and Plan: Continue with current treatment. (4) HTN (hypertension): Code(s): I10 - Essential (primary) hypertension Status: Acute Assessment and Plan: P.r.n. hydralazine Subjective Date/time seen: 05/01/23 16:49 Interval history: Abnormal lab HPI-Narrative: This is a 67-year-old female patient who has a history of achalasia and the patient is approximately 10 days away from having surgery at [facility].? The patient had her pre-surgical labs drawn and was told there was some concern for dehydration.? The patient had blood work today and was informed that she was dehydrated that her kidney functions were poor and that she needed to come to the emergency room for evaluation.? The patient is fatigued and has difficulty swallowing at times.? Typically she can keep water down but has had poor oral intake.? She has no fever chills.? No nausea vomiting or diarrhea.? No difficulty urinating.? Her white count is 10.6.? H&H is 15.1 and 47.3.? Her sodium was 148.? P when is 120 creatinine is 2.9.? GFR 16.? Magnesium 2.4.? The patient had +leukocyte esterase in her urine and 11-20 wbc's.? With moderate amount of squamous epithelia cells.? Most likely this is a contaminant.? The patient was given 2 L of IV fluids.? The patient is drinking water without difficulty at this time.? The patient stated she is starting to feel better.? Her urine was sent for culture. 05/01/2023 interval history: Patient presented with elevated BUN and creatinine as patient has achalasia, and difficulty with p.o. intake upon arrival patient BUN >120 and Scr 2.9 patient being hydrated and today her BUN is 20 and Scr is 1.0, however her sodium was trending up to 157 today it is trending down to 152 and discuss with diatician, patient is unable to take PO and as has vomiting, recommended parenteral nutrition, on 04/28 started patient on TPN, patient stats today feels little more energetic, and feels better, patient enterocolitis improving including sodium, unable to discharge patient home on TPN I called patient's surgeon Dr Pimentel at [facility] and patient is accepted for transfer awaiting for a bed will continue to hydrate the patient and oral intake will continue monitor and further
[2023-05-01 17:38] LABS: Glucose Point of Care 102 mg/dl (65-105)
[2023-05-01 19:47] VITALS: BP 134/64; PULSE 77; RESP 16; TEMP 36.3; O2SAT 100
--- NOTE | 2023-05-02 07:29 | PM.TDS ---
Transfer Discharge Sum: Prov Provider Date of admission: 04/28/23 13:41 Primary care physician: Ruth Richter NP Admitting clinician: Preston Manzo MD Consults: 04/27/23 Consult to Physician Routine Comment: Consulting Provider: Sina Valentino score caller/MD group to consult: Call made to office. MD aware she is here and will see her for procedure. Reason for consultation: Hysteroscopy Has provider been notified: Yes 04/28/23 10:51 Consult to Dietitian Routine Reason for Consult:: TPN DS: Admitting Diagnosis Discharge Date 05/01/23 Admitting Diagnosis Abnormal labs Transfer Discharge Sum: Med Medications Active and Home Medications: Home Medications omeprazole 1 cap PO DAILY PRN Indigestion 04/24/23 [History Confirmed 04/26/23] Transfer Discharge Sum: Hosp Hospital Course Hospital course: Magaly Butler is a 67 year old female The patient has had poor oral intake.? The patient has a history of achalasia and is approximately 12 days away from surgery.? When I assessed the patient she was drinking water without difficulty.? Continue with IV fluids as her creatinine is 2.9.? Her GFR is 16.? Calcium 10.3.? Renal ultrasound has been ordered for tomorrow.? If patient does not have any improvement or has an abnormal ultrasound may consider consulting Nephrology. Patient presented with elevated BUN and creatinine as patient has achalasia, and difficulty with p.o.? intake upon arrival patient BUN >120 and Scr 2.9 patient being hydrated and today her BUN is 20 and Scr is 1.0, however her sodium was trending up to 157 today it is trending down to 152 and discuss with? diatician, patient is unable to take PO and as has vomiting, recommended parenteral nutrition, on 04/28 started patient on TPN, patient stats today feels little more energetic, and feels better, patient enterocolitis improving including sodium, unable to discharge patient home on TPN I called patient's surgeon Dr Pimentel at [facility] and patient is accepted for transfer awaiting for a bed will continue to hydrate the patient and oral intake Time Spent with Patient Time attestation: Total time spent providing and/or coordinating transfer services: Exam Narrative: Morbidly obese Patient is comfortable, NAD HEENT: eyes are clear and none icteric LUNGS:? Normal respiratory effort ABD:? Distended Lower extremities: no edema SKIN: nonjaundiced Neuro: grossly intact. DS: Data Data Completed and Pending Labs on day of discharge: Labs from last 24 hours 05/01/23 05/01/23 17:35 12:03 POC Capillary Glucose 102 127 H
== END 2023-05-01 21:06 | disposition short-term general hospital (02) | DRG 684 ==
LOC: ANHED 14:48 → ANH3MED 16:41
PROVIDERS: Nurse Practitioner; Admitting Provider Internal Medicine; Emergency Provider Emergency Medicine; PCP Nurse Practitioner Family; Visit Provider Family Medicine
DX: N17.9 Acute kidney failure, unspecified (principal); E86.0 Dehydration; K22.0 Achalasia of cardia; E78.5 Hyperlipidemia, unspecified; I10 Essential (primary) hypertension; K21.9 Gastro-esophageal reflux disease without esophagitis; H40.9 Unspecified glaucoma; E66.01 Morbid (severe) obesity due to excess calories; Z68.33 Body mass index [BMI] 33.0-33.9, adult
CPT/HCPCS: 36415; 36569; 76775; 80048; 80053; 81001; 82948; 83605; 83690; 83735; 84100; 84466; 84478; 85025; 85027; 85610; 85730; 87086; 96361; 96365; 96366; 99285; A9270; C1751; C9113; G0378; J2405; J3480; J7030